=== PATIENT | female | born 1935 | race Caucasian/White ===

== ENCOUNTER 2017-02-05 12:15 | Emergency (ER) | payer MEDICARE, OTHER ==
[2017-02-05] MEDS ORDERED: NS 0.9% 1000 ML* 1,000 ML IV SCH (13:45)
--- NOTE | 2017-02-05 14:18 | RAD ---
HISTORY: Chest pain, trauma COMPARISONS: June 05, 2015 VIEWS: 2: Frontal dual-energy and lateral views of the chest. FINDINGS: CARDIOMEDIASTINAL SILHOUETTE: The cardiomediastinal silhouette is normal. YESENIA: The yesenia are normal. PLEURA: The costophrenic angles are sharp. No pleural abnormalities are noted. LUNG PARENCHYMA: There is hyperinflation with flattening of the diaphragm and expansion of the AP diameter of the chest. ABDOMEN: The upper abdomen is clear. There is no subphrenic gas. 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 There is diffuse osteopenia. OTHER: The patient is status post bilateral breast augmentation. IMPRESSION: HYPERINFLATION, CONSISTENT WITH COPD. NO ACTIVE CARDIOPULMONARY DISEASE.
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
[2017-02-05 15:15] LABS: ALT 10 U/L (7-52); AST 18 U/L (13-39); Albumin 4.7 g/dL (3.2-5.2); Alkaline Phosphatase 34 U/L (34-104); Anion Gap 5 mmol/L (2-11); BUN/Creatinine Ratio 17.2 (8-20); Blood Urea Nitrogen 11 mg/dL (6-24); C Reactive Protein < 1.00 mg/L (< 5.00); CO2 Carbon Dioxide 29 mmol/L (22-32); Chloride 101 mmol/L (101-111); Creatine Kinase 62 U/L (10-223); EGFR African American 115.1 (>60); EGFR Non-African American 89.5 (>60); Glucose 94 mg/dL (70-100); Lipase 38 U/L (11.0-82.0); Magnesium 1.9 mg/dL (1.9-2.7); Potassium 4.1 mmol/L (3.5-5.0); Sodium 135 mmol/L (133-145); Total Protein 7.7 g/dL (6.4-8.9)
[2017-02-05 15:19] VITALS: BP 151/89
== END 2017-02-05 15:17 | disposition home or self-care (01) ==
LOC: ED 12:15
DX: S20.219A Contusion of unspecified front wall of thorax, initial encounter (principal); R07.9 Chest pain, unspecified; V49.9XXA Car occupant (driver) (passenger) injured in unspecified traffic accident, initial encounter; Y93.9 Activity, unspecified; Y92.9 Unspecified place or not applicable
CPT/HCPCS: 36415; 71020; 80053; 82550; 82553; 83690; 83735; 84484; 85610; 85730; 86140; 93005; 99282